=== PATIENT | male | born 1935 | race Caucasian/White ===

== ENCOUNTER 2022-02-11 17:54 | Inpatient (IN) | payer MEDICARE ==
[~2022-02-11] VITALS: Wt 76.3 kg
[2022-02-11 18:05] VITALS: BP 130/86
[2022-02-11 19:00] LABS: BASO % 0.2 % (0.0-1.0); EOS # 0.1 10*3/uL (0.0-0.4); EOS % 1.5 % (1.0-4.0); LYMPH # 1.6 10*3/uL (1.3-4.4); LYMPH % 17.6 % (27.0-41.0); MEAN CELL VOLUME 98.4 fl (80.0-94.0); MEAN CORPUSCULAR HGB 33.2 pg (27.0-31.0); MEAN CORPUSCULAR HGB CONC 33.7 g/dl (33.0-37.0); MEAN PLATELET VOLUME 9.7 fl (9.6-12.3); MONO # 0.6 10*3/uL (0.1-1.0); MONO % 6.6 % (3.0-9.0); NEUT # 6.7 10*3/uL (2.3-7.9); NEUT % 73.7 % (47.0-73.0); PLATELET COUNT AUTOMATED 209 10*3/uL (130-400); RED BLOOD COUNT 3.86 10*6/uL (4.50-5.90); RED CELL DISTRI WIDTH 12.6 % (0-14.5); WHITE BLOOD COUNT 9.1 10*3/uL (4.8-10.8)
[2022-02-11 19:03] LABS: BILIRUBIN Negative (Negative); BLOOD Negative (Negative); CLARITY Cloudy (Clear); COLOR Yellow (Yellow); GLUCOSE Negative (Negative); KETONE Trace (Negative); LEUKO ESTERASE Negative (Negative); NITRITE Negative (Negative); SPECIFIC GRAVITY 1.025 (1.001-1.030)
[2022-02-11 19:12] LABS: ACT PARTIAL THROMBO TIME 28.8 SECONDS (20.0-32.1)
[2022-02-11 19:15] LABS: URINE AMPHETAMINES < 1000 (1000ng/ml); URINE BARBITURATES < 200 (200ng/ml); URINE BENZODIAZEPINES < 200 (200ng/ml); URINE CANNABINOIDS (THC) < 50 (50ng/ml); URINE COCAINE < 300 (300ng/ml); URINE METHADONE < 300 (300ng/ml); URINE OPIATES < 300 (300ng/ml)
[2022-02-11 19:17] LABS: ALKALINE PHOSPHATASE 88 U/L (45-117); BUN 17 mg/dl (7-24); CHLORIDE 107 mmol/L (98-107); CREATININE 0.95 mg/dL (0.70-1.30); POTASSIUM 4.2 mmol/L (3.5-5.1); SGOT/AST 26 IU/L (3-35); SGPT/ALT 30 U/L (12-78); SODIUM 140 mmol/L (136-145); TOTAL PROTEIN 6.8 gm/dL (6.4-8.2)
[2022-02-11 19:19] LABS: URINE PHENCYCLIDINE < 25 (25ng/ml)
[2022-02-11 19:20] LABS: ETHYL ALCOHOL < 3.0 mg/dl (<3)
[2022-02-11 19:37] LABS: BACTERIA 1+; EPITHELIAL CELLS 0-2; MUCOUS 1+
[2022-02-11 22:27] VITALS: BP 118/84
[2022-02-11] MEDS ORDERED: HALOPERIDOL5 MG/1 M2 IM (23:21)
[2022-02-11] MEDS ORDERED: MELATONIN5 M1 PO (23:22)
[2022-02-11] MEDS ORDERED: ASPIRIN ADULT L81 M2 PO (23:23)
[2022-02-11] MEDS ORDERED: LIPITOR10 MG PO (23:24)
[2022-02-11] MEDS ORDERED: DONEPEZIL HCL10 MG PO (23:25)
[2022-02-11] MEDS ORDERED: LEXAPRO20 MG PO (23:26)
[2022-02-11] MEDS ORDERED: LISINOPRIL5 MG PO (23:28)
[2022-02-11] MEDS ORDERED: LATANOPROST 0.7.5 ML OU (23:28)
[2022-02-11] MEDS ORDERED: VITAMIN B-12500 MC3 PO (23:30)
[2022-02-11] MEDS ORDERED: NAMENDA10 MG PO (23:31)
[2022-02-11] MEDS ORDERED: SEROQUEL25 MG PO (23:32)
[2022-02-11] MEDS ORDERED: SEROQUEL50 MG PO (23:33)
[2022-02-11] MEDS ORDERED: ONE-A-DAY MEN200 MCG PO (23:36)
[2022-02-11] MEDS ORDERED: [UNRECOGNIZED DRUG - OTHER] PO (23:38)
[2022-02-12 06:45] LABS: CHOLESTEROL 124 mg/dL (<200); LDL CHOLESTEROL 64 mg/dL (9-159); TRIGLYCERIDES 85 mg/dl (<150)
[2022-02-12 07:27] VITALS: BP 153/90
[2022-02-12 07:29] VITALS: BP 153/90
[2022-02-12 08:00] VITALS: BP 153/90
[2022-02-12 08:28] LABS: VITAMIN D, 25-HYDROXY 45.2 ng/mL (30-100)
[2022-02-12 20:00] VITALS: BP 125/84
[2022-02-13 08:00] VITALS: BP 158/89
[2022-02-13 20:00] VITALS: BP 131/51
[2022-02-14 08:02] VITALS: BP 142/69
[2022-02-14 20:03] VITALS: BP 111/60
[2022-02-15 07:36] VITALS: BP 134/73
[2022-02-15 20:00] VITALS: BP 125/70
[2022-02-16 08:00] VITALS: BP 113/59
[2022-02-16 11:00] LABS: BASO % 0.3 % (0.0-1.0); EOS # 0.1 10*3/uL (0.0-0.4); EOS % 1.2 % (1.0-4.0); LYMPH # 1.8 10*3/uL (1.3-4.4); LYMPH % 30.8 % (27.0-41.0); MEAN CORPUSCULAR HGB 32.9 pg (27.0-31.0); MEAN CORPUSCULAR HGB CONC 33.6 g/dl (33.0-37.0); MEAN PLATELET VOLUME 9.3 fl (9.6-12.3); MONO # 0.7 10*3/uL (0.1-1.0); MONO % 11.1 % (3.0-9.0); NEUT # 3.3 10*3/uL (2.3-7.9); NEUT % 56.3 % (47.0-73.0); PLATELET COUNT AUTOMATED 197 10*3/uL (130-400); RED BLOOD COUNT 3.98 10*6/uL (4.50-5.90); RED CELL DISTRI WIDTH 12.5 % (0-14.5); WHITE BLOOD COUNT 5.9 10*3/uL (4.8-10.8)
[2022-02-16 11:15] LABS: ALKALINE PHOSPHATASE 70 U/L (45-117); BUN 12 mg/dl (7-24); CHLORIDE 106 mmol/L (98-107); POTASSIUM 4.2 mmol/L (3.5-5.1); SGOT/AST 20 IU/L (3-35); SGPT/ALT 24 U/L (12-78); SODIUM 138 mmol/L (136-145); TOTAL PROTEIN 6.6 gm/dL (6.4-8.2)
[2022-02-16] MEDS ORDERED: EXEL13.31 TD (11:52)
[2022-02-16] MEDS ORDERED: EXELON1 EAC2 TD (11:55)
[2022-02-16 20:00] VITALS: BP 131/65
[2022-02-17 08:09] VITALS: BP 122/58
[2022-02-17 11:38] LABS: BILIRUBIN Negative (Negative); BLOOD Negative (Negative); CLARITY Clear (Clear); COLOR Dark Yellow (Yellow); GLUCOSE Negative (Negative); KETONE 1+ (Negative); LEUKO ESTERASE Negative (Negative); NITRITE Negative (Negative); PH 5.5 (4.5-8.0); SPECIFIC GRAVITY 1.025 (1.001-1.030)
[2022-02-17 11:48] LABS: MUCOUS 2+; WBC 0-2 wbc/hpf (0-5)
[2022-02-17 20:00] VITALS: BP 125/60
[2022-02-18 07:51] VITALS: BP 144/68
[2022-02-18 20:00] VITALS: BP 135/69
[2022-02-19 06:20] LABS: BASO % 0.5 % (0.0-1.0); EOS # 0.1 10*3/uL (0.0-0.4); EOS % 2.1 % (1.0-4.0); HEMATOCRIT 38.2 % (42.0-52.0); LYMPH # 2.4 10*3/uL (1.3-4.4); LYMPH % 39.8 % (27.0-41.0); MEAN CELL VOLUME 99.7 fl (80.0-94.0); MEAN CORPUSCULAR HGB 33.2 pg (27.0-31.0); MEAN CORPUSCULAR HGB CONC 33.2 g/dl (33.0-37.0); MEAN PLATELET VOLUME 9.4 fl (9.6-12.3); MONO # 0.7 10*3/uL (0.1-1.0); MONO % 11.2 % (3.0-9.0); NEUT # 2.8 10*3/uL (2.3-7.9); NEUT % 45.9 % (47.0-73.0); PLATELET COUNT AUTOMATED 184 10*3/uL (130-400); RED BLOOD COUNT 3.83 10*6/uL (4.50-5.90); RED CELL DISTRI WIDTH 12.5 % (0-14.5); WHITE BLOOD COUNT 6.1 10*3/uL (4.8-10.8)
[2022-02-19 06:37] LABS: ALKALINE PHOSPHATASE 66 U/L (45-117); BUN 14 mg/dl (7-24); CHLORIDE 108 mmol/L (98-107); CREATININE 0.95 mg/dL (0.70-1.30); POTASSIUM 4.1 mmol/L (3.5-5.1); SGOT/AST 21 IU/L (3-35); SGPT/ALT 28 U/L (12-78); SODIUM 142 mmol/L (136-145); VALPROIC ACID (DEPAKENE) 54.9 ug/ml (50-100)
[2022-02-19 07:47] VITALS: BP 113/68
[2022-02-19 19:26] VITALS: BP 109/60
[2022-02-20 07:45] VITALS: BP 152/77
[2022-02-20 20:00] VITALS: BP 133/69
[2022-02-21 07:30] VITALS: BP 108/87
[2022-02-21 09:04] LABS: BASO % 0.4 % (0.0-1.0); EOS # 0.1 10*3/uL (0.0-0.4); EOS % 1.7 % (1.0-4.0); HEMATOCRIT 37.4 % (42.0-52.0); LYMPH # 2.3 10*3/uL (1.3-4.4); LYMPH % 30.9 % (27.0-41.0); MEAN CELL VOLUME 97.1 fl (80.0-94.0); MEAN CORPUSCULAR HGB 33.2 pg (27.0-31.0); MEAN CORPUSCULAR HGB CONC 34.2 g/dl (33.0-37.0); MEAN PLATELET VOLUME 9.6 fl (9.6-12.3); MONO # 0.8 10*3/uL (0.1-1.0); MONO % 10.4 % (3.0-9.0); NEUT # 4.2 10*3/uL (2.3-7.9); NEUT % 56.2 % (47.0-73.0); PLATELET COUNT AUTOMATED 174 10*3/uL (130-400); RED BLOOD COUNT 3.85 10*6/uL (4.50-5.90); RED CELL DISTRI WIDTH 12.2 % (0-14.5); WHITE BLOOD COUNT 7.5 10*3/uL (4.8-10.8)
[2022-02-21 09:28] LABS: ALKALINE PHOSPHATASE 69 U/L (45-117); BUN 15 mg/dl (7-24); CHLORIDE 109 mmol/L (98-107); CREATININE 0.78 mg/dL (0.70-1.30); POTASSIUM 4.3 mmol/L (3.5-5.1); SGOT/AST 24 IU/L (3-35); SGPT/ALT 27 U/L (12-78); SODIUM 140 mmol/L (136-145); TOTAL PROTEIN 6.1 gm/dL (6.4-8.2)
[2022-02-21 10:21] LABS: BILIRUBIN Negative (Negative); BLOOD Negative (Negative); CLARITY Clear (Clear); COLOR Yellow (Yellow); GLUCOSE Negative (Negative); KETONE Trace (Negative); LEUKO ESTERASE Negative (Negative); NITRITE Negative (Negative); PH 7.5 (4.5-8.0)
[2022-02-21 11:03] LABS: WBC 0-2 wbc/hpf (0-5)
[2022-02-21 11:04] LABS: MUCOUS 1+
[2022-02-21 20:00] VITALS: BP 140/89
[2022-02-22 07:43] VITALS: BP 135/70
[2022-02-22 20:00] VITALS: BP 100/57
[2022-02-23 08:14] VITALS: BP 117/84
[2022-02-23 09:46] LABS: BASO % 0.4 % (0.0-1.0); EOS # 0.1 10*3/uL (0.0-0.4); EOS % 0.6 % (1.0-4.0); HEMATOCRIT 42.8 % (42.0-52.0); LYMPH # 1.8 10*3/uL (1.3-4.4); LYMPH % 23.2 % (27.0-41.0); MEAN CELL VOLUME 95.7 fl (80.0-94.0); MEAN CORPUSCULAR HGB 32.7 pg (27.0-31.0); MEAN CORPUSCULAR HGB CONC 34.1 g/dl (33.0-37.0); MEAN PLATELET VOLUME 9.5 fl (9.6-12.3); MONO # 0.7 10*3/uL (0.1-1.0); MONO % 8.7 % (3.0-9.0); NEUT # 5.3 10*3/uL (2.3-7.9); NEUT % 66.8 % (47.0-73.0); PLATELET COUNT AUTOMATED 226 10*3/uL (130-400); RED BLOOD COUNT 4.47 10*6/uL (4.50-5.90); RED CELL DISTRI WIDTH 12.1 % (0-14.5); WHITE BLOOD COUNT 7.9 10*3/uL (4.8-10.8)
[2022-02-23 10:03] LABS: ALKALINE PHOSPHATASE 78 U/L (45-117); BUN 20 mg/dl (7-24); CHLORIDE 108 mmol/L (98-107); CREATININE 1.02 mg/dL (0.70-1.30); POTASSIUM 4.3 mmol/L (3.5-5.1); SGOT/AST 32 IU/L (3-35); SGPT/ALT 31 U/L (12-78); SODIUM 138 mmol/L (136-145); TOTAL PROTEIN 7.3 gm/dL (6.4-8.2)
[2022-02-23 10:09] LABS: VALPROIC ACID (DEPAKENE) 47.2 ug/ml (50-100)
[2022-02-23 20:00] VITALS: BP 120/89
[2022-02-24 08:14] VITALS: BP 104/79
[2022-02-24 20:00] VITALS: BP 114/90
[2022-02-25 07:16] VITALS: BP 131/97
[2022-02-25] MEDS ORDERED: NORTRIPTYLINE H50 M1 PO (09:22)
[2022-02-25] MEDS ORDERED: DIVALPROEX SOD125 M1 PO (09:22)
[2022-02-25] MEDS ORDERED: RIVASTIGMINE1 EAC2 T (09:22)
[2022-02-25] MEDS ORDERED: MEMANTINE HCL10 MG PO (09:22)
[2022-02-25] MEDS ORDERED: CYCLOBENZAPRINE10 MG PO (14:15)
== END 2022-02-25 16:50 | disposition home or self-care (01) | DRG 883 ==
LOC: ED 17:54 → 3N 21:17 → EDHOLD 21:17 → 3N 21:22
PROVIDERS: Counselor Professional; Emergency Medicine; ADMIT Psychiatry & Neurology Psychiatry; ATTEND Psychiatry & Neurology Psychiatry
DX: F63.81 Intermittent explosive disorder (principal); F02.81 Dementia in other diseases classified elsewhere, unspecified severity, with behavioral disturbance; J98.11 Atelectasis; G30.9 Alzheimer's disease, unspecified; E78.2 Mixed hyperlipidemia; I10 Essential (primary) hypertension; R73.9 Hyperglycemia, unspecified; D53.9 Nutritional anemia, unspecified; Z66 Do not resuscitate; Z51.5 Encounter for palliative care; Z79.899 Other long term (current) drug therapy; Z79.82 Long term (current) use of aspirin; Z20.822 Contact with and (suspected) exposure to COVID-19